=== PATIENT | male | born 1980 | race Caucasian/White ===

== ENCOUNTER 2019-12-15 15:53 | Emergency (ER) | payer OTHER | END 2019-12-15 17:41 | disposition other institution (70) | LOC: ED 15:53 | DX: Z02.89 Encounter for other administrative examinations (principal) ==

== ENCOUNTER 2019-12-15 15:53 | Emergency (ER) | payer OTHER ==
[~2019-12-15] VITALS: Ht 180.3 cm; Wt 90.7 kg
[2019-12-15 15:58] VITALS: BP 146/97; Ht 180.3 cm; Wt 90.7 kg
== END 2019-12-15 17:41 | disposition other institution (70) ==
LOC: ED 15:53
DX: S02.642A Fracture of ramus of left mandible, initial encounter for closed fracture (principal); S02.601A Fracture of unspecified part of body of right mandible, initial encounter for closed fracture; Y04.0XXA Assault by unarmed brawl or fight, initial encounter; Y93.89 Activity, other specified; Y92.89 Other specified places as the place of occurrence of the external cause; Y99.8 Other external cause status